=== PATIENT | female | born 1945 | race Caucasian/White ===

== ENCOUNTER 2021-07-04 09:27 | Observation (INO) | payer MEDICARE ==
[~2021-07-04] VITALS: Ht 160 cm; Wt 92.0 kg
[~2021-07-04 09:27] MED LIST: ANASTROZOLE1 MG PO; ATIVAN1 MG PO; BACLOFEN10 MG PO; CARVEDILOL25 MG PO; CENTRUM ADULTS1 TAB PO; CIPROFLOXACN500 MG PO; CYANOCOBAL1000 MCG/M IM; D3400 UNIT PO; DIGOXIN0.125 MG PO; DOXYCYCL HYC100 MG PO; ENTRESTO 49-511 TAB PO; GABAPENTIN100 MG PO; GLIPIZIDE ER10 M1 PO; HYDROCHLORO25 MG/TAB PO; HYZAAR OR; KLOR-CON M20 PO; KLOR-CON M2020 MEQ PO; LOSARTAN POT100 MG PO; LYRICA50 MG PO; METFORMIN HCL750 MG PO; METFORMIN1000 MG PO; METOPROL TAR25 MG PO; METOPROLOL TARTRATE PO; NITROFURANTN100 MG PO; NOVOLIN N100 UNIT/3 SC; ONGLYZA5 MG OR; ORPHENADRINE100 MG OR; POT CHLORIDE20 ME2 PO; PRAVACHOL40 MG PO; VITAMIN C500 MG PO; VITAMIN E400 UNIT PO; [UNRECOGNIZED DRUG - OTHER] PO
[2021-07-04 09:57] LABS: HEMATOCRIT 40.3 % (37.0-47.0); HEMOGLOBIN 13.1 g/dl (12.0-16.0); IMMATURE GRANULOCYTES 1.6 % (0.0-5.0); MEAN CELL VOLUME 90.4 fL CALC (80.0-100.0); MEAN CORPUSCULAR HGB 29.4 pG CALC (26.0-32.0); MEAN CORPUSCULAR HGB CONC 32.5 g/dL CAL (32.0-36.0); NEUT# 10.39 thou/uL (2.00-7.15); RED BLOOD COUNT 4.46 mill/uL (4.20-5.60); RED CELL DISTRI WIDTH 14.4 % (11.5-15.5)
[2021-07-04 10:26] LABS: ALBUMIN 3.7 g/dL (3.2-5.0); ALKALINE PHOSPHATASE 90 u/l (38-126); BILIRUBIN, TOTAL 0.8 mg/dL (0.0-1.4); CHLORIDE 100 mmol/l (95-108); POTASSIUM 4.3 mmol/l (3.5-5.1); SGOT/AST 32 u/l (9-36); SODIUM 131 mmol/l (137-146); TOTAL PROTEIN 7.9 g/dL (6.3-8.2)
[2021-07-04 10:29] LABS: ANION GAP 21 (6-22 (CALC)); BUN 98 mg/dL (8-23); BUN/CREATININE RATIO 49 (12-20 (CALC)); CARBON DIOXIDE 14 mmol/l (22-30); GFR 24 ML/MIN (>=60 (CALC)); GFR FOR AFR.AMER. 29 ML/MIN (>=60 (CALC))
[2021-07-04 10:30] LABS: URINE BILIRUBIN - DIPSTICK NEGATIVE (NEGATIVE); URINE BLOOD DIPSTICK MODERATE (NEGATIVE); URINE COLOR YELLOW; URINE GLUCOSE - DIPSTICK NEGATIVE (NEGATIVE); URINE KETONE NEGATIVE (NEGATIVE); URINE LEUK ESTERASE LARGE (NEGATIVE); URINE NITRITE - DIPSTICK POSITIVE (Negative); URINE PH 5.5 (4.5-8.0); URINE PROTEIN - DIPSTICK TRACE mg/dL (NEG-TRACE); URINE SPECIFIC GRAVITY 1.025; URINE UROBILINOGEN - DIPSTICK 0.2 E.U./dL (0.2)
[2021-07-04 10:31] LABS: URINE BACTERIA MANY hpf; URINE EPITHELIAL CELLS MODERATE EPI/hpf (0-FEW); URINE WBC 50-100 WBC/hpf (0-5)
[2021-07-04 13:21] VITALS: BP 127/59
[2021-07-04 15:04] VITALS: BP 106/56
[2021-07-04] MEDS ORDERED: NOVOLIN N100 UNIT SC (15:13)
[2021-07-04 19:00] VITALS: BP 129/59
[2021-07-05] VITALS: BP 110/58
[2021-07-05 03:46] VITALS: BP 121/59
[2021-07-05 05:46] LABS: HEMOGLOBIN 12.1 g/dl (12.0-16.0); MEAN CORPUSCULAR HGB 29.7 pG CALC (26.0-32.0); MEAN CORPUSCULAR HGB CONC 35.3 g/dL CAL (32.0-36.0); RED BLOOD COUNT 4.07 mill/uL (4.20-5.60); RED CELL DISTRI WIDTH 14.1 % (11.5-15.5)
[2021-07-05 05:58] LABS: HEMATOCRIT 34.3 % (37.0-47.0); MEAN CELL VOLUME 84.3 fL CALC (80.0-100.0)
[2021-07-05 06:11] LABS: CREATININE 1.2 mg/dL (0.5-1.0); MAGNESIUM 1.6 mg/dL (1.6-2.3)
[2021-07-05 06:31] LABS: POTASSIUM 3.1 mmol/l (3.5-5.1)
[2021-07-05 07:28] VITALS: BP 119/62
[2021-07-05 10:00] VITALS: BP 124/59
[2021-07-05 15:00] VITALS: BP 132/53
[2021-07-05 19:36] VITALS: BP 152/69
[2021-07-06 00:43] VITALS: BP 140/72
[2021-07-06 04:00] VITALS: BP 142/71
[2021-07-06 05:39] LABS: HEMATOCRIT 35.6 % (37.0-47.0); HEMOGLOBIN 12.3 g/dl (12.0-16.0); MEAN CELL VOLUME 85.4 fL CALC (80.0-100.0); MEAN CORPUSCULAR HGB 29.5 pG CALC (26.0-32.0); MEAN CORPUSCULAR HGB CONC 34.6 g/dL CAL (32.0-36.0); RED BLOOD COUNT 4.17 mill/uL (4.20-5.60); RED CELL DISTRI WIDTH 14.3 % (11.5-15.5)
[2021-07-06 05:54] LABS: ANION GAP 12 (6-22 (CALC)); CHLORIDE 108 mmol/l (95-108); CREATININE 0.8 mg/dL (0.5-1.0); GFR > 60 ML/MIN (>=60 (CALC)); GFR FOR AFR.AMER. > 60 ML/MIN (>=60 (CALC)); MAGNESIUM 1.6 mg/dL (1.6-2.3); POTASSIUM 3.5 mmol/l (3.5-5.1); SODIUM 138 mmol/l (137-146)
[2021-07-06 05:56] LABS: BUN 42 mg/dL (8-23); BUN/CREATININE RATIO 53 (12-20 (CALC)); CARBON DIOXIDE 22 mmol/l (22-30)
[2021-07-06 07:52] VITALS: BP 118/58
[2021-07-06] MEDS ORDERED: Levaquin PO (10:28)
[2021-07-06 11:12] VITALS: BP 145/65
== END 2021-07-06 14:28 ==
LOC: ED 09:27 → ED-I 11:06 → ED 11:34 → MS2 11:35
PROVIDERS: Family Medicine; Nurse Practitioner; ADMIT Internal Medicine; ATTEND Internal Medicine
DX: N39.0 Urinary tract infection, site not specified (principal); N17.9 Acute kidney failure, unspecified; I11.0 Hypertensive heart disease with heart failure; I50.22 Chronic systolic (congestive) heart failure; E11.40 Type 2 diabetes mellitus with diabetic neuropathy, unspecified; E78.5 Hyperlipidemia, unspecified; E66.01 Morbid (severe) obesity due to excess calories; B96.20 Unspecified Escherichia coli [E. coli] as the cause of diseases classified elsewhere; Z68.41 Body mass index [BMI] 40.0-44.9, adult; Z79.4 Long term (current) use of insulin; Z79.84 Long term (current) use of oral hypoglycemic drugs; Z95.0 Presence of cardiac pacemaker; Z20.822 Contact with and (suspected) exposure to COVID-19

== ENCOUNTER 2023-09-13 13:56 | Emergency (ER) | payer MEDICARE ==
[~2023-09-13] VITALS: Ht 160 cm; Wt 97.5 kg
[~2023-09-13 13:56] MED LIST changes: +Levaquin PO; +NOVOLIN N100 UNIT SC
[2023-09-13] MEDS ORDERED: LASIX 20 MG TAB20 MG PO (18:38)
[2023-09-13 18:41] VITALS: BP 134/69
== END 2023-09-13 18:49 | disposition home or self-care (01) ==
LOC: ED 13:56
DX: M25.572 Pain in left ankle and joints of left foot (principal); M25.571 Pain in right ankle and joints of right foot; R60.0 Localized edema; I10 Essential (primary) hypertension; E11.40 Type 2 diabetes mellitus with diabetic neuropathy, unspecified; Z95.0 Presence of cardiac pacemaker; Z79.84 Long term (current) use of oral hypoglycemic drugs; Z79.4 Long term (current) use of insulin